=== PATIENT | male | born 1955 | race Caucasian/White ===

== ENCOUNTER 2016-09-10 12:14 | Observation (INO) | payer OTHER ==
[~2016-09-10] VITALS: Ht 177.8 cm; Wt 100.0 kg
[2016-09-10 12:16] VITALS: BP 186/89; PULSE 76; RESP 20; TEMP 97.9; O2SAT 96
[2016-09-10] MEDS ORDERED: TEST-55 (13:44)
[2016-09-10] MEDS ORDERED: LOSA50TA PO (13:44)
[2016-09-10] MEDS ORDERED: ROSU1TAB6 PO (13:44)
[2016-09-10] MEDS ORDERED: NEXI20CA PO (13:44)
[2016-09-10] MEDS ORDERED: SODIUM CHLORIDE 0.9% FLUSH 5 ML FLUSH IVF PRN (14:00)
[2016-09-10] MEDS: NITROGLYCERIN 0.4 MG SL 25 TABS/BTL SL SCH ×2 (14:00→14:05)
[2016-09-10] MEDS ORDERED: ASPIRIN 81 MG CHEW TAB CHEW ONE (14:00)
[2016-09-10 14:17] LABS: AUTOMATED NEUTROPHIL # 6.1 TH/MM3 (1.8-7.7); BASOPHIL # 0.1 TH/MM3 (0-0.2); BASOPHIL % 1.6 % (0.0-2.0); EOSINOPHIL % 0.3 % (0.0-4.0); HEMATOCRIT 46.7 % (39.0-51.0); HEMO FLAGS DIFF FINAL; LYMPH % 12.8 % (9.0-44.0); MEAN CELL VOLUME 86.8 FL (80.0-100.0); MEAN CORPUSCULAR HEMOGLOBIN 29.3 PG (27.0-34.0); MEAN CORPUSCULAR HGB CONC 33.7 % (32.0-36.0); MONO % 4.3 % (0.0-8.0); PLATELET COUNT 248 TH/MM3 (150-450); RED BLOOD COUNT 5.38 MIL/MM3 (4.50-5.90); RED CELL DISTRIBUTION WIDTH 14.8 % (11.6-17.2); WHITE BLOOD COUNT 7.6 TH/MM3 (4.0-11.0)
--- NOTE | 2016-09-10 14:22 | RADRPT ---
EXAM DATE/TIME: 09/10/2016 14:16 [place] COMPARISON: No previous studies available for comparison. INDICATIONS : Chest pain. MEDICAL HISTORY : None. SURGICAL HISTORY : None. ENCOUNTER: Initial ACUITY: 2 weeks PAIN SCORE: 110 LOCATION: Left upper chest FINDINGS: PA and lateral views of the chest demonstrate the lungs to be symmetrically aerated without evidence of mass, infiltrate or effusion. The cardiomediastinal contours are unremarkable. Osseous structure s are intact. CONCLUSION: No acute disease. Oscar Fontana MD FACR on September 10, 2016 at 14:20 Board Certified Radiologist. This report was verified electronically.
[2016-09-10 14:28] LABS: APTT (PATIENT) 23.9 SEC (24.3-30.1); PROTHROMBIN TIME - PATIENT 10.7 SEC (9.8-11.6)
[2016-09-10 14:39] LABS: ALKALINE PHOSPHATASE 58 U/L (45-117); CREATINE KINASE 308 U/L (39-308); TOTAL BILIRUBIN ADULT 0.6 MG/DL (0.2-1.0)
[2016-09-10 14:51] LABS: CKMB 1.5 NG/ML (0.5-3.6)
[2016-09-10 15:46] LABS: BLOOD UREA NITROGEN 15 MG/DL (7-18); GLOMERULAR FILTRATION RATE 64 ML/MIN (>89); MAGNESIUM 2.4 MG/DL (1.5-2.5)
[2016-09-10 15:47] LABS: ALT (GPT) 46 U/L (12-78); ANION GAP 7 MEQ/L (5-15); AST (GOT) 30 U/L (15-37); BICARBONATE 27.7 MEQ/L (21.0-32.0); CHLORIDE 104 MEQ/L (98-107); POTASSIUM 4.3 MEQ/L (3.5-5.1); SODIUM (NA) 139 MEQ/L (136-145)
[2016-09-10 15:51] VITALS: O2SAT 97
--- NOTE | 2016-09-10 16:07 | PD ---
HPI Chief Complaint: Chest Pain Time Seen by Provider: 13:47 Travel History International Travel<30 days: No Contact w/Intl Traveler<30days: No Traveled to known affect area: No History of Present Illness HPI Patient is a 61-year-old male who comes in complaining of left-sided chest pain. He says he has had the pain on and off for the past 2 days. Today while he was working out, exercising his legs, he the pain to the left side of his chest. He was worried it might be his heart, so he came in. 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 He is not sure if this is muscle pain or heart pain. He has not taken anything for the pain. He denies cough or shortness of breath. He denies nausea or vomiting. He denies fever or chills. PFSH Past Medical History Cardiac Catheterization: Yes () Cardiovascular Problems: Yes High Cholesterol: Yes Hypertension: Yes Social History Alcohol Use: Yes Tobacco Use: No Allergies-Medications (Allergen,Severity, Reaction): Coded Allergies: No Known Allergies (Unverified , 09/10/16) Reported Meds & Prescriptions Reported Meds & Active Scripts Active Reported Testosterone (Testosterone (Bulk)) 1 Pow Pow Losartan (Losartan Potassium) 50 Mg Tab 50 Mg PO DAILY Rosuvastatin (Rosuvastatin Calcium) 10 Mg Tab 10 Mg PO HS Nexium (Esomeprazole DR) 20 Mg Capdr 20 Mg PO DAILY Review of Systems Except as stated in HPI: all other systems reviewed are Neg General / Constitutional: No: Fever, Chills Eyes: No: Blurred Vision HENT: No: Headaches, Lightheadedness Cardiovascular: Positive: Chest Pain or Discomfort Respiratory: No: Shortness of Breath Gastrointestinal: No: Nausea, Vomiting Musculoskeletal: No: Myalgias, Edema Skin: No Rash, No Change in Pigmentation Neurologic: No: Weakness, Dizziness Physical Exam Narrative GENERAL: Awake and alert, in no acute distress. SKIN: Warm and dry. No rash. HEAD: Atraumatic. Normocephalic. EYES: Pupils equal and round. No scleral icterus. ENT: Mucous membranes pink and moist. NECK: Trachea midline. No JVD. CARDIOVASCULAR: Regular rate and rhythm. No murmur appreciated. Tenderness to deep palpation in the left chest wall. RESPIRATORY: No accessory muscle use. Clear to auscultation. Breath sounds equal bilaterally. GASTROINTESTINAL: Abdomen soft, non-tender, nondistended. Hepatic and splenic margins not palpable. MUSCULOSKELETAL: No obvious deformities. No clubbing. No cyanosis. No edema. NEUROLOGICAL: Awake and alert. No obvious cranial nerve deficits. Motor grossly within normal limits. Normal speech. PSYCHIATRIC: Appropriate mood and affect; insight and judgment normal. Data Data Last Documented VS Vital Signs Date Time Temp Pulse Resp B/P Pulse Ox O2 Delivery O2 Flow Rate FiO2 09/10/16 15:51 97 Nasal Cannula 2 09/10/16 13:44 64 18 09/10/16 12:16 97.9 186/89 Orders Electrocardiogram (09/10/16 ) Ckmb (Isoenzyme) Profile (09/10/16 13:57) Complete Blood Count With Diff (09/10/16 13:57) Comprehensive Metabolic Panel (09/10/16 13:57) Magnesium (Mg) (09/10/16 13:57) Prothrombin Time / Inr (Pt) (09/10/16 13:57) Act Partial Throm Time (Ptt) (09/10/16 13:57) Troponin I (09/10/16 13:57) Ecg Monitoring (09/10/16 13:57) Bilateral Bp Monitoring (09/10/16 13:57) Iv Access Insert/Monitor (09/10/16 13:57) Oximetry (09/10/16 13:57) Oxygen Administration (09/10/16 13:57) Sodium Chloride 0.9% Flush (Ns Flush) (09/10/16 14:00) Nitroglycerin Sl (Nitrostat Sl) (09/10/16 14:00) Chest, Pa & Lat (09/10/16 13:57) Aspirin Chew (Aspirin Chew) (09/10/16 14:00) CKMB (09/10/16 14:06) CKMB% (09/10/16 14:06) Admit Order (Ed Use Only) (09/10/16 ) Labs Laboratory Tests Test 09/10/16 14:06 White Blood Count 7.6 TH/MM3 Red Blood Count 5.38 MIL/MM3 Hemoglobin 15.7 GM/DL Hematocrit 46.7 % Mean Corpuscular Volume 86.8 FL Mean Corpuscular Hemoglobin 29.3 PG Mean Corpuscular Hemoglobin 33.7 % Concent Red Cell Distribution Width 14.8 % Platelet Count 248 TH/MM3 Mean Platelet Volume 8.0 FL Neutrophils (%) (Auto) 81.0 % Lymphocytes (%) (Auto) 12.8 % Monocytes (%) (Auto) 4.3 % Eosinophils (%) (Auto) 0.3 % Basophils (%) (Auto) 1.6 % Neutrophils # (Auto) 6.1 TH/MM3 Lymphocytes # (Auto) 1.0 TH/MM3 Monocytes # (Auto) 0.3 TH/MM3 Eosinophils # (Auto) 0.0 TH/MM3 Basophils # (Auto) 0.1 TH/MM3 CBC Comment DIFF FINAL Differential Comment Prothrombin Time 10.7 SEC Prothromb Time International 1.0 RATIO Ratio Activated Partial 23.9 SEC Thromboplast Time Sodium Level 139 MEQ/L Potassium Level 4.3 MEQ/L Chloride Level 104 MEQ/L Carbon Dioxide Level 27.7 MEQ/L Anion Gap 7 MEQ/L Blood Urea Nitrogen 15 MG/DL Creatinine 1.15 MG/DL Estimat Glomerular Filtration 64 ML/MIN Rate Random Glucose 115 MG/DL Calcium Level 9.4 MG/DL Magnesium Level 2.4 MG/DL Total Bilirubin 0.6 MG/DL Aspartate Amino Transf 30 U/L (AST/SGOT) Alanine Aminotransferase 46 U/L (ALT/SGPT) Alkaline Phosphatase 58 U/L Total Creatine Kinase 308 U/L Creatine Kinase MB 1.5 NG/ML Troponin I LESS THAN 0.02 NG/ML Total Protein 7.4 GM/DL Albumin 4.1 GM/DL MDM Medical Decision Making Medical Screen Exam Complete: Yes Emergency Medical Condition: Yes Medical Record Reviewed: Yes Interpretation(s) ECG shows sinus rhythm at 69, no ST elevation or depression. Differential Diagnosis ACS versus NSTEMI versus STEMI versus pneumonia versus costochondritis versus pneumothorax Narrative Course Patient is a 61-year-old male who comes in complaining of chest pain. He has history of 2 MIs in the past. Exam shows no acute abnormalities. 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 Labs sent including troponin are negative for any acute abnormalities. ECG shows no signs of ischemia. Patient given aspirin, he refused the nitroglycerin. Based on patient's history, story of pain with exertion, as well as his age, I believe he would benefit from a stay in the chest pain center. He is placed in chest pain center for further management. Diagnosis Primary Impression: Chest pain Qualified Code: R07.9 - Chest pain, unspecified type Admitting Information Admitting Physician Requests: Sandra Escobedo MD Sep 10, 2016 16:07
[2016-09-10] MEDS ORDERED: ONDANSETRON HCL 4 MG/2 ML VIAL IV PRN (16:30)
[2016-09-10] MEDS ORDERED: ACETAMINOPHEN 500 MG CPLT PO PRN (17:00)
[2016-09-10] MEDS ORDERED: NITROGLYCERIN 0.4 MG SL 25 TABS/BTL SL PRN (17:00)
[2016-09-10 17:42] LABS: CREATINE KINASE 267 U/L (39-308)
[2016-09-10 17:54] LABS: CKMB 1.4 NG/ML (0.5-3.6)
[2016-09-10] MEDS ORDERED: SODIUM CHLORIDE 0.9% FLUSH 5 ML FLUSH IVF SCH (21:00)
[2016-09-11] MEDS ORDERED: ASPIRIN 325 MG TAB PO SCH (09:00)
--- NOTE | 2016-09-11 11:41 | EKG ---
Date Performed: 09/10/2016 Time Performed: 12:42:15 PTAGE: 61 years EKG: Sinus rhythm POSSIBLE LEFT ATRIAL ENLARGEMENT BORDERLINE LEFT AXIS DEVIATION BORDERLINE ECG NO PREVIOUS TRACING DOCTOR: Krishan Torres Interpretating Date/Time 09/11/2016 11:39:46
--- NOTE | 2016-09-11 11:53 | EKG ---
Date Performed: 09/10/2016 Time Performed: 16:47:20 PTAGE: 61 years EKG: Sinus rhythm BORDERLINE LEFT AXIS DEVIATION BORDERLINE ECG INTERPRETATION BASED ON A DEFAULT AGE OF 39 YEARS PREVIOUS TRACING : 09/10/2016 12.42 DOCTOR: Krishan oTrres Interpretating Date/Time 09/11/2016 11:53:02
--- NOTE | 2016-09-13 13:52 | MH ---
cc: [facility] DATE OF ADMISSION 09/10/2016 is 54 CHIEF COMPLAINT Chest discomfort. HISTORY OF PRESENT ILLNESS This is a 61-year-old patient with known hypertension and dyslipidemia who presents to the emergency room with a chest discomfort, onset two days ago. He States two days ago while he was performing chest exercises at the gym; at the time he was performing these exercise, he stretched backwards quite a bit and states he felt discomfort on his left anterior chest. Since that time, he has had intermittent chest pain with the duration anywhere from minutes to hours described as someone slightly touching his chest "with pressure". No associated symptoms. No known precipitating factors, although he believes that it was from exercising and no known relieving factors. The chest discomfort is not made worse with exertion. In fact, over the last few days he has walked on the treadmill and chest discomfort was not brought on by this. This morning he was quite worried when performing exercises on his legs and his chest pain increased in intensity. He decided to come in for further evaluation. PAST MEDICAL HISTORY 1. Hypertension, 2. Hyperlipidemia. 3. Reports having two heart attacks in the past with no intervention or cardiac stents. PAST SURGICAL HISTORY No past surgical history. FAMILY HISTORY Noncontributory for any early onset cardiovascular disease. Father at age 84 and had a total of 10 stents. Mother is 80 and is alive and well. His younger brother recently had a mild stroke. SOCIAL HISTORY He is retired. He lives at [facility] four months out of the year. He is from [place]. He quit smoking in 1999. Prior to that, he smoked two packs of cigarettes daily off and on for approximately 10 years. He will drink alcohol occasionally. Denies any illegal drug use. Does have known hypertension and dyslipidemia. No known diabetes. PAST CARDIAC TESTING He follows with a Dr. Womack in his hometown and has not seen a motion picture set up worker in over two years. He has not had any recent cardiac stress testing. His primary care provider in [place] is a Dr. Aureliano Mccord and he follows with him on a regular basis. The patient does not have any past records with him as far as any cardiac testing. He does state in year 1999 he had a cardiac catheterization. There was no intervention as far as angioplasties or stents. He was told he had a pulmonary embolism and also a heart attack. In 2007, he describes severe food poisoning for five days and again was told he had a heart attack. He had a cardiac catheterization performed and there were no blockages. ALLERGIES He does not have any allergies MEDICATIONS Current 1. Losartan 50 mg daily 2. Crestor 10 mg q.h.s., 3. Nexium 20 mg daily 4. Testosterone gel applied topically daily. REVIEW OF SYSTEMS GENERAL: No recent fevers, chills, weakness, malaise, fatigue. He is in his general state of health. HEENT: No headaches, dysphagia, vision changes or nasal congestion or drainage. CARDIOVASCULAR: No current chest discomfort and left anterior chest is palpated. There is no palpitations, intermittent leg pain or dizziness. RESPIRATORY: No shortness of breath. He is getting over a bronchitis he had two weeks ago and in his coughing is improving. States he coughs just in the morning and again he is improving from this, no wheeze, hemoptysis. ABDOMEN: No bowel changes, diarrhea, nausea, vomiting or blood in the stool or dark stool. : No dysuria or hematuria. EXTREMITIES: No lower leg edema or pain. MUSCULOSKELETAL: No change in range of motion, reports discomfort is his left anterior chest. It is not made worse with breathing or movement, although it is made worse with touching the area. NEUROLOGIC: No difficulty with balance, motor or sensory deficits, loss of consciousness, change in memory. PSYCHIATRIC: No anxiety or depression. SKIN: No rashes. No concerning lesions. PHYSICAL EXAMINATION VITAL SIGNS: Temperature 97.9, pulse 76, respiratory 20, blood pressure 186/89 and 96% on room air. GENERAL: He is alert, well-nourished, well-developed in no acute distress, pleasant male HEAD: Normocephalic, atraumatic. EYES: Sclerae clear. Conjunctivae without injection. NECK: Supple. Trachea is midline. CARDIOVASCULAR: Regular rate and rhythm without murmur, rub or gallop. No JVD. S1-S2. No S3. No S4. No carotid bruits. RESPIRATORY: Clear lungs throughout bilateral with no crackles, wheeze or rhonchi. He is nonlabored. Has symmetric chest rise. ABDOMEN: Soft, nontender, nondistended. No masses. EXTREMITIES: Pulses +2 x4. No dependent edema. MUSCULOSKELETAL: Normal tone x4. He is tender in the left anterior chest wall and actually it is a localized area the size about a quarter. No obvious deformities. NEUROLOGIC: Cranial nerves II-XII grossly intact. Motor strength 5/5. Gait is within normal limits. PSYCHIATRIC: He is alert and oriented x3, appropriate to mood, insight and judgment. SKIN: Normal turgor, normal texture. Warm and dry and no rashes. He has a brisk cap refill. LABORATORY DATA CBC is unremarkable. Chemistry has a random glucose of 115, estimated GFR 64, otherwise unremarkable. Two sets of cardiac enzymes are negative. Coagulation is unremarkable. IMAGING STUDIES Chest x-ray read by the radiologist as a conclusion of no acute disease. CARDIOLOGY STUDIES Two EKGs show a normal sinus rhythm with a left axis deviation. ASSESSMENT/PLAN Chest pain. The patient has been admitted to the chest pain center. Upon entering room, the patient was adamant that he was not going to stay overnight. He has been strongly encouraged to stay overnight, he have three sets of EKGs and cardiac enzymes and be seen by the chest pain physician in the a.m. He is adamant that he does not want to stay and, in fact, he feels comfortable leaving as his second troponin is unchanged. Discussed with the patient in length to return to the emergency room immediately for any kind of progressive chest discomfort and also spent greater than 10 minutes discussing the importance of him staying for cardiac testing due to his past medical history and not having a recent stress test. The patient states he will follow up with his motion picture set up worker once returned to [place] and have a stress test completed at that time. Regina Carmen M.D. JABARI/ /6:01 PM /1:51 PM
== END 2016-09-10 18:56 | disposition left against medical advice (07) ==
LOC: NEPC 12:14 → NEDA 16:09
PROVIDERS: ADMIT Internal Medicine Interventional Cardiology; ATTEND Internal Medicine Interventional Cardiology
DX: R07.89 Other chest pain (principal); E78.5 Hyperlipidemia, unspecified; I10 Essential (primary) hypertension; R94.31 Abnormal electrocardiogram [ECG] [EKG]; I25.2 Old myocardial infarction; E78.00 Pure hypercholesterolemia, unspecified; F17.210 Nicotine dependence, cigarettes, uncomplicated; Z86.711 Personal history of pulmonary embolism
CPT/HCPCS: 71020; 80053; 82550; 82552; 83735; 84484; 85025; 85610; 85730; 93005; 99285; G0378